=== PATIENT | female | born 1995 | race Caucasian/White ===

== ENCOUNTER 2019-01-22 01:27 | Emergency (ER) | payer SELFPAY ==
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
--- NOTE | 2019-01-22 02:53 | RADIOLOGY REPORT (SQ) ---
EXAM DESCRIPTION: CT CERVICAL SPINE WITHOUT IV CONTRAST COMPLETED DATE/TME: 01/22/2019 02:01 CLINICAL HISTORY: trauma/injury COMPARISON: None available TECHNIQUE: Axial CT of the cervical spine obtained without contrast. FINDINGS: Straightening of the cervical lordosis is likely secondary to patient positioning. The atlantoaxial, atlantodental, and occipitoatlantal intervals are preserved. No fracture identified. Vertebral body height preserved. Prevertebral soft tissues are unremarkable. Intervertebral disc height preserved. Visualized skull base is intact. No fracture of the visualized facial bones. Visualized mastoid air cells and paranasal sinuses are well aerated. Visualized thyroid is unremarkable. No cervical lymphadenopathy. No pneumothorax in the visualized lung apices. DLP: 187.32 mGy-cm IMPRESSION: 1. No acute fracture or subluxation of the cervical spine. This exam was performed according to our departmental dose-optimization program, which includes automated exposure control, adjustment of the mA and/or kV according to patient size and/or use of iterative reconstruction technique.
--- NOTE | 2019-01-22 02:55 | RADIOLOGY REPORT (SQ) ---
EXAM DESCRIPTION: CT HEAD WITHOUT IV CONTRAST COMPLETED DATE/TME: 01/22/2019 02:01 CLINICAL HISTORY: trauma/injury COMPARISON: None available TECHNIQUE: Axial CT of the head obtained from the skull apex to the skull base without contrast. FINDINGS: No acute intracranial hemorrhage identified. No mass, mass effect, shift of the midline, abnormal extra-axial fluid collection or CT evidence of acute ischemic change identified. The ventricular system is unremarkable. No acute abnormalities of the supratentorial white matter, basal ganglia, cerebellum, or brainstem. The visualized paranasal sinuses and the mastoids are clear. No skull fracture identified. Visualized orbits and globes are unremarkable. DLP: 990.56 mGy-cm IMPRESSION: 1. No acute intracranial abnormality identified. This exam was performed according to our departmental dose-optimization program, which includes automated exposure control, adjustment of the mA and/or kV according to patient size and/or use of iterative reconstruction technique.
--- NOTE | 2019-01-22 03:03 | RADIOLOGY REPORT (SQ) ---
Left ankle three view on 01/22/2019 at 2:23 AM CLINICAL INDICATION: Left ankle pain after fall COMPARISON: None FINDINGS: The ankle mortise is intact. There are no fractures. Visualized joints are well aligned. No bony abnormality is noted. IMPRESSION: No acute bony abnormality.
--- NOTE | 2019-01-22 03:06 | RADIOLOGY REPORT (SQ) ---
Left tibia-fibula two view on 01/22/2019 at 2:21 AM CLINICAL INDICATION: Pain after fall COMPARISON: None FINDINGS: There are no fractures. No joint effusion is noted in the knee. Visualized joints are well aligned. No bony abnormality is noted. IMPRESSION: No acute bony abnormality.
--- NOTE | 2019-01-22 03:11 | RADIOLOGY REPORT (SQ) ---
Left femur two view on 01/22/2019 at 2:20 AM CLINICAL INDICATION: Pain after fall COMPARISON: None FINDINGS: There are no fractures. Likely incidental bone island is noted in the left ischium. Visualized joints are well aligned. No other bony abnormality is noted. IMPRESSION: No acute abnormality.
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
[2019-01-22 04:22] VITALS: BP 115/53
== END 2019-01-22 04:30 | disposition home or self-care (01) ==
LOC: ER 01:27
DX: S80.12XA Contusion of left lower leg, initial encounter (principal); S09.90XA Unspecified injury of head, initial encounter; W19.XXXA Unspecified fall, initial encounter; Y93.89 Activity, other specified
CPT/HCPCS: 70450; 72125; 72170; 99284

== ENCOUNTER 2020-07-17 13:55 | Emergency (ER) | payer BC, MEDICAID ==
--- NOTE | 2020-07-17 14:10 | ER Document Report ---
ED Medical Screen (RME) - General Chief Complaint: Sore Throat Stated Complaint: SORE THROAT,FEVER,VOMITING Time Seen by Provider: 07/17/20 14:02 Primary Care Provider: REHANA MCDANIELS MD [Primary Care Provider] - Follow up as needed Mode of Arrival: Ambulatory Information source: Patient Notes: 24-year-old female presented to ED for complaint of very painful throat with difficulty swallowing due to pain. She states she was seen recently at [facility] and was told that her strep and COVID were negative. She does have a possible peritonsillar abscess on the left. I have also tested her for mono. She does have very large tonsils larger on the left with exudate on both. Patient is alert oriented respirations regular nonlabored. She is able to swallow her spit but it is painful. I have greeted and performed a rapid initial assessment of this patient. A comprehensive ED assessment and evaluation of the patient, analysis of test results and completion of medical decision making process will be conducted by an additional ED providers. TRAVEL OUTSIDE OF THE [place] IN LAST 30 DAYS: No - Related Data Allergies/Adverse Reactions: No Known Allergies Allergy (Verified 09/25/13 17:35) Past Medical History - Social History Chew tobacco use (# tins/day): No Frequency of alcohol use: Social Drug Abuse: None Physical Exam - Vital signs Vitals: Temp Pulse Resp BP Pulse Ox 98.8 F 93 16 109/75 98 07/17/20 14:00 07/17/20 14:00 07/17/20 14:00 07/17/20 14:00 07/17/20 14:00 Course - Vital Signs Vital signs: Temp Pulse Resp BP Pulse Ox 98.8 F 93 16 109/75 98 07/17/20 14:00 07/17/20 14:00 07/17/20 14:00 07/17/20 14:00 07/17/20 14:00 Doctor's Discharge - Discharge Referrals: REHANA MCDANIELS MD [Primary Care Provider] - Follow up as needed
[2020-07-17] MEDS ORDERED: DEXAMETHASONE SOD PHOS INJ 10 MG/1 ML VIAL IV ONE (14:11)
[2020-07-17] MEDS ORDERED: CLINDAMYCIN 300 MG/D5W RTU 300 MG/50 ML RTUPB IV ONE (14:11)
[2020-07-17] MEDS ORDERED: NORMAL SALINE 1000 ML 1,000 ML IV ONE (14:12)
[2020-07-17 15:00] LABS: APPEARANCE,URINE SLIGHTLY-CLOUDY; BILIRUBIN,URINE NEGATIVE (NEGATIVE); COLOR,URINE AMBER; GLUCOSE, URINE NEGATIVE (NEGATIVE); KETONES,URINE 20 mg/dL (NEGATIVE); LEUKOCYTE ESTERASE,URINE TRACE (NEGATIVE); NITRITE,URINE NEGATIVE (NEGATIVE); PROTEIN,URINE 100 mg/dL (NEGATIVE); URINE SPECIFIC GRAVITY 1.032
[2020-07-17 15:03] LABS: ABSOLUTE LYMPHOCYTES (AUTO) 1.8 10^3/uL (0.5-4.7); ABSOLUTE MONOCYTES (AUTO) 1.5 10^3/uL (0.1-1.4); ABSOLUTE NEUT (AUTO) 11.8 10^3/uL (1.7-8.2); BASOPHILS % (AUTO) 0.3 % (0-2); EOSINOPHILS % (AUTO) 0.2 % (0-6); HEMATOCRIT 38.5 % (36.0-47.0); HEMOGLOBIN 13.7 g/dL (12.0-15.5); LYMPHOCYTES % (AUTO) 11.6 % (13-45); MEAN CORPUSCULAR HEMOGLOBIN 28.5 pg (27.0-33.4); MEAN CORPUSCULAR HGB CONC 35.7 g/dL (32.0-36.0); MEAN CORPUSCULAR VOLUME 80 fl (80-97); MONOCYTES % (AUTO) 9.7 % (3-13); PLATELET COUNT 286 10^3/uL (150-450); RED BLOOD COUNT 4.82 10^6/uL (3.72-5.28); RED CELL DISTRIBUTION WIDTH 13.6 % (11.5-14.0); SEGMENTED NEUTROPHILS % (AUTO) 78.2 % (42-78); TOTAL CELLS COUNTED % (AUTO) 100 %; WHITE BLOOD COUNT 15.1 10^3/uL (4.0-10.5)
[2020-07-17] MEDS ORDERED: KETOROLAC TROMETHAMINE INJ/PF 30 MG/1 ML SDV IV ONE (15:09)
--- NOTE | 2020-07-17 15:10 | ER Document Report ---
ED ENT - General Chief Complaint: Sore Throat Stated Complaint: SORE THROAT,FEVER,VOMITING Time Seen by Provider: 07/17/20 14:02 Primary Care Provider: REHANA MCDANIELS MD [ACTIVE STAFF] - Follow up as needed Mode of Arrival: Ambulatory Information source: Patient Notes: 24-year-old female patient presenting with 3 to 4-day history of sore throat, painful swallowing and fevers. Patient reports T-max at home 101. She states she went to an urgent care 2 days ago where she had a negative COVID-19 and negative rapid strep. She reports that her symptoms are worsening. She does have a history of having strep throat in the past, states this feels much different. TRAVEL OUTSIDE OF THE [place] IN LAST 30 DAYS: No - Related Data Allergies/Adverse Reactions: No Known Allergies Allergy (Verified 09/25/13 17:35) Past Medical History - General Information source: Patient - Social History Smoking Status: Never Smoker Chew tobacco use (# tins/day): No Frequency of alcohol use: Social Drug Abuse: None Family History: Reviewed & Not Pertinent Patient has homicidal ideation: No Physical Exam - Vital signs Vitals: Temp Pulse Resp BP Pulse Ox 98.8 F 93 16 109/75 98 07/17/20 14:00 07/17/20 14:00 07/17/20 14:00 07/17/20 14:00 07/17/20 14:00 - Notes Notes: PHYSICAL EXAMINATION: GENERAL: Appears mildly ill. HEAD: Atraumatic, normocephalic. EYES: Pupils equal round and reactive to light, extraocular movements intact, conjunctiva are normal. ENT: Nares patent, oropharynx erythematous with tonsillar swelling, bilateral tonsillar exudates. Left tonsil larger than the right, uvula is displaced. Moist mucous membranes. NECK: Normal range of motion, supple without lymphadenopathy LUNGS: Breath sounds clear to auscultation bilaterally and equal. No wheezes rales or rhonchi. HEART: Regular rate and rhythm without murmurs ABDOMEN: Soft, nontender, nondistended abdomen. No guarding, no rebound. No masses appreciated. Female : deferred Musculoskeletal: Normal range of motion, no pitting or edema. No cyanosis. NEUROLOGICAL: Cranial nerves grossly intact. Normal speech, normal gait. Normal sensory, motor exams PSYCH: Normal mood, normal affect. SKIN: Warm, Dry, normal turgor, no rashes or lesions noted. Course - Re-evaluation Re-evalutation: 07/17/20 17:13 There is no abscess identified on the CT soft tissue neck. Patient receiving IV antibiotics, IV steroids, IV Toradol and IV fluids at this time. Will reevaluate her. Patient does have leukocytosis, white blood count 15,000, negative strep, negative mono, labs otherwise unremarkable. Patient feels much improved. We will discharge her home on antibiotics and pain medication. Strict ED return precautions were discussed, patient verbalized understanding and agreement with plan. - Vital Signs Vital signs: Temp Pulse Resp BP Pulse Ox 98.8 F 84 16 109/62 99 07/17/20 18:21 07/17/20 18:21 07/17/20 18:21 07/17/20 18:21 07/17/20 18:21 - Laboratory Result Diagrams: 07/17/20 14:18 07/17/20 14:18 Laboratory results interpreted by me: 07/17/20 07/17/20 07/17/20 14:18 14:18 14:18 WBC 15.1 H Lymph % (Auto) 11.6 L Absolute Neuts (auto) 11.8 H Absolute Monos (auto) 1.5 H Seg Neutrophils % 78.2 H Chloride 97 L Urine Protein 100 H Urine Ketones 20 H Urine Blood MODERATE H Urine Urobilinogen 4.0 H Ur Leukocyte Esterase TRACE H Discharge - Discharge Clinical Impression: Acute tonsillitis Qualifiers: Pharyngitis/tonsillitis etiology: unspecified etiology Qualified Code(s): J03.90 - Acute tonsillitis, unspecified Condition: Stable Disposition: HOME, SELF-CARE Instructions: Tonsillitis ([facility]) Additional Instructions: Take medications as prescribed. Someone will call you if there is any abnormality with your throat culture. Return to the emergency department if you develop any worsening symptoms such as fevers uncontrolled by Tylenol or ibuprofen or you are unable to swallow. I would recommend purchasing [id number] children's ibuprofen so that it will be easier for you to swallow. Prescriptions: Hydrocodone/Acetaminophen [Hydrocodone-Acetamin 10-325/15] 10 ml PO Q6HP PRN #120 solution PRN Reason: Hydrocodone/Acetaminophen [Hydrocodone-Acetamn 7.5-325/15] 10 ml PO Q6HP PRN #120 ml PRN Reason: Penicillin V Potassium [Penicillin Vk 500 mg Tablet] 500 mg PO BID #14 tablet Forms: Return to Work Referrals: REHANA MCDANIELS MD [ACTIVE STAFF] - Follow up as needed
[2020-07-17 15:15] LABS: ALBUMIN 4.4 g/dL (3.5-5.0); ALKALINE PHOSPHATASE 100 U/L (38-126); ANION GAP 12 (5-19); ASPARTATE AMINO TRANSFERASE 15 U/L (14-36); BILIRUBIN,DIRECT 0.3 mg/dL (0.0-0.4); BILIRUBIN,TOTAL 0.8 mg/dL (0.2-1.3); BLOOD UREA NITROGEN 10 mg/dL (7-20); CARBON DIOXIDE 29 mmol/L (22-30); CHLORIDE 97 mmol/L (98-107); GLUCOSE 97 mg/dL (75-110); TOTAL PROTEIN 7.5 g/dL (6.3-8.2)
--- NOTE | 2020-07-17 17:10 | RADIOLOGY REPORT (SQ) ---
EXAM DESCRIPTION: CT SOFT TISSUE NECK WITH IMAGES COMPLETED DATE/TIME: 07/17/2020 4:49 pm REASON FOR STUDY: Enlarged tonsils ? left peritonsillar abscess COMPARISON: None. TECHNIQUE: Post IV contrasted scanning from skull base through lung apices with review of bone, soft tissue and lung windows. Reconstructed coronal and sagittal MPR images reviewed. All images stored on PACS. All CT scanners at this facility use dose modulation, iterative reconstruction, and/or weight based d osing when appropriate to reduce radiation dose to as low as reasonably achievable (ALARA). [facility]: Dose Right [facility]: CareDose [facility]: Dose Right [facility]: Teradose 4D [facility]: Baytex CONTRAST TYPE AND DOSE: contrast/concentration: Isovue 350.00 mmol/ml; Total Contrast Delivered: 75. 0 ml; Total Saline Delivered: 55.0 ml RENAL FUNCTION: None required. The patient is less than 50 years old. RADIATION DOSE: CT Rad equipment meets quality standard of care and radiation dose reduction techniq ues were employed. CTDIvol: 17.8 mGy. DLP: 532 mGy-cm. . LIMITATIONS: None. FINDINGS: SKULL BASE: Intact. MAJOR SALIVARY GLANDS: No solid or cystic masses. No inflammatory changes. LYMPHADENOPATHY: Bilateral level 2 cervical adenopathy. MUCOSAL MASSES OR ASYMMETRY: Enlarged tonsils bilaterally. No evidence for abscess or significant fl uid. LARYNX/CORDS: No abnormal findings. VASCULAR STRUCTURES: The major vessels are patent. LUNG APICES: Clear. BONES: Intact. THYROID: Normal size. No masses. PARANASAL SINUSES: Clear. OTHER: No other significant finding. IMPRESSION: Enlarged tonsils bilaterally. No evidence for abscess or significant fluid.Bilateral le sunny 2 cervical adenopathy. TECHNICAL DOCUMENTATION: JOB ID: [id number] Quality ID # [id number]: Final reports with documentation of one or more dose reduction techniques (e.g., Au tomated exposure control, adjustment of the mA and/or kV according to patient size, use of iterative reconstruction technique) 2010 [employer]- All Rights Reserved Reading location - IP/workstation name: J [email or web address] Lads
[2020-07-17 18:34] VITALS: BP 109/62
== END 2020-07-17 18:41 | disposition home or self-care (01) ==
LOC: ER 13:55
DX: J03.90 Acute tonsillitis, unspecified (principal); R50.9 Fever, unspecified
CPT/HCPCS: 99285; 96375; 96365; 36415; 87040; 87070; 87086; 84703; 87880; 85025; 87077; 86308; 80053; 81001; 70491; J3490; J1885; J7030; J1100